=== PATIENT | male | born 1995 | race Caucasian/White ===

== ENCOUNTER 2019-02-16 18:05 | Emergency (ER) | payer OTHER, SELFPAY ==
[2019-02-16 18:12] VITALS: BP 133/80; PULSE 80; RESP 18; TEMP 37.3; O2SAT 100
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
[2019-02-16 18:37] LABS: Abs Immature Grans 0.03 k/cumm (0.0-0.09); Absolute Basophil Count 0.02 k/cumm (0.0-0.2); Absolute Eosinophil Count 0.06 k/cumm (0.0-0.7); Absolute Lymphocyte Count 1.92 k/cumm (1.2-3.4); Absolute Monocyte Count 0.83 k/cumm (0.11-0.7); Absolute Neutrophil Count 6.61 k/cumm (1.2-6.7); Basophils % 0.2; Eosinophils % 0.6; HCT 46.1 % (40.0-50.0); HGB 15.8 g/dL (13.5-17.5); Immature Grans % 0.3; Lymphocytes % 20.3; Mean Corp. HGB Concentration 34.3 g/dL (32.0-36.0); Mean Corpuscular Volume 90.4 fL (80-95); Monocytes % 8.8; Neutrophils % 69.8; Platelet Count 227 x1000/uL (130-400); RBC Distribution Width 11.8 % (11.8-14.1); White Blood Cell Count 9.47 k/cumm (4.4-10.8)
[2019-02-16] MEDS: Normal Saline 1,000 ML 1000 ML IV (18:45)
[2019-02-16] MEDS: Omnipaque 350 MG/ML 100 ML BTL IJ (18:50)
[2019-02-16 18:52] LABS: ALT 32 U/L (16-63); AST 30 U/L (15-37); Albumin 4.1 g/dL (3.4-5.0); Alkaline Phosphatase 89 U/L (46-116); Anion Gap 8.7 mmol/L (3-11); BUN 15 mg/dL (7-18); Bilirubin, Total 0.5 mg/dL (0.2-1.0); CO2 26.3 mmol/L (21.0-32.0); Chloride 103 mmol/L (98-107); Glucose 112 mg/dL (70-100); Lipase 72 U/L (73-393); Potassium 3.7 mmol/L (3.5-5.1); Sodium 138 mmol/L (136-145); Total Protein 7.2 g/dL (6.4-8.2)
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
[2019-02-16] MEDS: Acetaminophen 500 MG TAB 1000 MG PO (19:22)
[2019-02-16] MEDS: Ketorolac 30 MG/ML VIAL IVP (19:22)
[2019-02-16] MEDS: Lidocaine 5% Patch 1 PATCH TP (19:22)
[2019-02-16 19:47] LABS: Bilirubin Negative (Negative); Blood Moderate (Negative); Clarity Clear (Clear); Glucose Negative (Negative); Ketones Trace mg/dL (Negative); Leukocyte Esterase Negative (Negative); Nitrite Negative (Negative); Specific Gravity <= 1.005 (1.005-1.025); Urobilinogen 0.2 EU/dL (Up TO 0.2); pH 5.5 (5-8)
[2019-02-16 19:59] LABS: Bacteria Few HPF (Negative); C & S Indicated? No; Casts Negative LPF (Negative); Crystals Negative HPF (Negative); Epithelial Cells Negative HPF (Negative); Mucus Trace (Negative); Other Cells Negative (Negative); WBC Negative HPF (0-5)
[2019-02-16 20:13] VITALS: BP 113/76; PULSE 91; RESP 18; O2SAT 97
--- NOTE | 2019-02-22 15:56 | NUR.NOTE ---
Nursing Note: Referral and MD note for physical therapy was faxed to [facility]. Annmarie Goode.
== END 2019-02-16 20:27 | disposition home or self-care (01) ==
LOC: ER 19:47
PROVIDERS: Emergency Provider Student in an Organized Health Care Education/Training Program
DX: S32.028A Other fracture of second lumbar vertebra, initial encounter for closed fracture (principal); S32.038A Other fracture of third lumbar vertebra, initial encounter for closed fracture; S30.0XXA Contusion of lower back and pelvis, initial encounter; S22.32XA Fracture of one rib, left side, initial encounter for closed fracture; V17.0XXA Pedal cycle driver injured in collision with fixed or stationary object in nontraffic accident, initial encounter; Y93.55 Activity, bike riding
CPT/HCPCS: 36415; 74177; 80053; 83690; 96361; 96374; 99285; 71260; 81003; 81015; 85025; J1885; J3490